=== PATIENT | female | born 1970 | race Two or more races ===

== ENCOUNTER 2018-05-03 01:10 | Emergency (ER) | payer SELFPAY ==
[~2018-05-03] VITALS: Ht 152.4 cm; Wt 76.7 kg
[2018-05-03] MEDS ORDERED: IPRATROPIUM BROM 0.5 MG/2.5ML INH SOL NEB ONE (01:15)
[2018-05-03] MEDS ORDERED: ALBUTEROL SULF 2.5 MG/0.5ML(0.5%) NEB SOLN NEB ONE (01:15)
[2018-05-03] MEDS ORDERED: DEXAMETHASONE SOD PHOS 10MG/1ML VIAL INJ IM ONE (02:00)
[2018-05-03] MEDS ORDERED: EPINEPHrine HCL 1 MG/1 ML AMP SC ONE (02:00)
[2018-05-03 03:23] VITALS: BP 136/89
== END 2018-05-03 03:27 | disposition home or self-care (01) ==
LOC: ER 01:14
DX: J45.901 Unspecified asthma with (acute) exacerbation (principal)
CPT/HCPCS: 71045; 94640; 96372; 99283; J0171; J1100; J7611; J7644